=== PATIENT | female | born 1945 | race Caucasian/White ===

== ENCOUNTER 2016-10-05 00:58 | Observation (INO) ==
[2016-10-05] MEDS ORDERED: HYDROmorphone 2 MG/1 ML VIAL IV STA (01:31)
[2016-10-05] MEDS ORDERED: ONDANSETRON 4 MG/2 ML VIAL IV STA (01:31)
[2016-10-05] MEDS ORDERED: ONDANSETRON 4 MG/2 ML VIAL ONE (01:33)
[2016-10-05] MEDS ORDERED: HYDROmorphone 2 MG/1 ML VIAL ONE (01:34)
--- NOTE | 2016-10-05 01:55 | Emergency Department Note ---
I, Laurita Medrano, am scribing for, and in the presence of, Prerna Lu DO 01: 43. I, Prerna Lu DO, personally performed the services described in this documentation, ascribed by Laurita Medrano in my presence, and it is both accurate and complete . Arrival - Arrival Chief Complaint: Back Stated Complaint: BACK PAIN ED Nursing Triage Note: PT TO ROOM VIA [employer] STRETCHER. PT C/O BACK PAIN AND RIGHT LEG PAIN SINCE YESTERDAY. Mode of Arrival: Stretcher Limitations: No Limitations Source: Patient, Family Time Seen by Provider: 10/05/16 01:03 - History of Present Illness HPI Narrative: Pt is a 71 y/o female that was brought to the ED via EMS with c/o right back/ leg pain and chest pain that has been going on for a few days now. Pt also reports she has had SOB. Pt states the chest pain has come and gone for a week now. Pt reports she has had gastritis in the past. She states she has had pain in her leg since she had her hip replacement this last time, "the doctor broke my femur bone." Pt reports she has had 2 open heart surgeries. Pt's manager ems is Dr. Feng and she sees him again in 2 months. Pt's last open heart surgery was 2009. states pt is always in pain. Pt's PCP is Dr. Clark in [place]. No other complaints/pain in ED. Onset (ago): day(s) Consistency: constant Severity: mild Severity scale (1-10): 2 Quality: sharp Allergies/Adverse Reactions: Allergies Allergy/AdvReac Type Severity Reaction Status Date / Time Cefaclor [From Ceclor] Allergy Intermediate Redness of Verified 10/05/16 01:03 Skin Iodinated Contrast Media - Allergy Intermediate RASH Verified 10/05/16 01:03 IV Dye ketorolac [From Toradol] Allergy Intermediate RASH Verified 10/05/16 01:03 Penicillins Allergy Intermediate RASH Verified 10/05/16 01:03 Sulfa (Sulfonamide Allergy Intermediate RASH Verified 10/05/16 01:03 Antibiotics) Home Medications: Home Medications Medication Instructions Recorded Confirmed Type Aspirin [Ecotrin] 81 mg PO DAILY 05/16/15 09/08/15 History Clorazepate [Tranxene] 7.5 mg PO TID 05/16/15 09/08/15 History Gabapentin Cap/Tab [Neurontin 300 mg PO TID 05/16/15 09/08/15 History Cap/Tab] Levothyroxine Tab [Synthroid Tab] 100 mcg PO DAILY@0700 05/16/15 09/08/15 History Pravastatin [Pravachol] 80 mg PO BEDTIME 05/16/15 09/08/15 History Ramipril 2.5 mg PO BID 05/16/15 09/08/15 History [place] 3 Acid Ethyl Esters [Lovaza] 2 gm PO BID #120 capsule 05/18/15 09/08/15 Rx Metoprolol Tartrate Tab [Lopressor 25 mg PO DAILY 08/24/15 09/08/15 History Tab] Doxycycline Hyclate Cap 100 mg PO BID #14 capsule 09/05/15 09/08/15 Rx [Vibramycin Cap] Famotidine Tab [Pepcid Tab] 20 mg PO BID #30 tablet 09/05/15 09/08/15 Rx Docusate Sodium Cap [Colace Cap] 100 mg PO DAILY PRN 09/08/15 09/08/15 History Furosemide Tab [Lasix Tab] 40 mg PO BID DIURETIC 09/08/15 09/08/15 History Review of System - Review of System 12 point system: reviewed and no additional remarkable complaints except as stated - Review of System Constitutional: Absent: chills, fever Respiratory: Absent: cough Cardiovascular: Present: chest pain (on and off chest pain) Musculoskeletal: Present: back pain (pain in right side of back), leg pain ( right leg pain). Absent: arm pain, neck pain Skin: Absent: rash Neurological: Absent: headache Psychiatric: Absent: anxiety Medical,Surgical,& Family Hx - Medical History Cardio: History of: CAD, Hypertension, [place], Cardiovascular Problems Psychological: History of: Anxiety Disorders, Depression Neurology: History of: Peripheral Neuropathy No history of: Seizures Endocrine: History of: Dyslipidemia, Thyroid Disorder (HYPOTHYROIDISM) Rheumatology: History of;: Fibromyalgia Respiratory: History of: COPD, Pneumonia, Respiratory Problems Genitourinary: History of: Bladder Problem, Problems Gastrointestinal: History of: Diverticulitis/ Diverticulosis (ischemic colitis) , GERD, Gastrointestinal Bleed (ONSET TODAY), Hemorrhoids Musculoskeletal: History of: Back/Neck Problems, Degenerative Disk Disease, Osteoporosis, Musculoskeletal Problems (CHRONIC LEG PAIN) Hematology: History of: Anemia, Blood Transfusion Reaction Other: History of: Miscellaneous Medical Problems (chronic pain syndrome) No history of: Cancer - Surgical History Cardiac Surgeries: Sugical HX of: Cardiac Catheterization (stents three) HEENT Surgeries: Surgical HX of: Thyroid Surgery (HYPO), Tonsilectomy & Adenoidectomy Abdominal Surgeries: Surgical HX of: Abdominal Surgery, Appendectomy, Cholecystectomy, Colonoscopy, EGD Reproductive Surgeries: Surgical HX of;: Hysterectomy Orthopedic Surgeries: Surgical HX of;: Total Hip Replacement (bilateral hips) - Family History Family History: Reports;: Family Heart Disease (mom and father), Family Hypertension (mom and father), Family Stroke (grandfather) Denies;: Family Cancer, Family Diabetes - Social History Smoking Status: Former smoker Frequency of Alcohol Use: None Type of Drug Use: None Exam Vital Signs: Vital Signs Temperature 98.4 F 10/05/16 00:59 Pulse Rate 70 10/05/16 00:59 Respiratory Rate 18 10/05/16 00:59 Blood Pressure 143/83 10/05/16 00:59 O2 Sat by Pulse Oximetry 95 10/05/16 00:59 - General General appearance: alert, in no apparent distress - Head Head exam: Present: atraumatic, normocephalic - Eye Eye exam: Present: PERRL, EOMI - ENT ENT exam: Present: mucous membranes moist. Absent: mucous membranes dry - Neck Neck exam: Present: full ROM. Absent: tenderness - Chest Chest inspection: Present: symmetric chest wall rise, other (scar consistant with bypass surgery). Absent: tenderness - Respiratory Respiratory exam: Present: normal lung sounds bilaterally. Absent: respiratory distress - Cardiovascular Cardiovascular exam: Present: regular rate, normal rhythm, normal heart sounds - Abdominal Exam Abdominal exam: Present: soft. Absent: tenderness - Extremities Exam Extremities exam: Present: full ROM. Absent: tenderness - Back Exam Back exam: Present: full ROM, tenderness (tenderness of L4 and L5; noted right side sciatica) - Neurological Exam Neurological exam: Present: alert, oriented X3, CN II-XII intact. Absent: motor sensory deficit - Psychiatric Psychiatric exam: Present: normal affect, normal mood - Skin Skin exam: Present: warm, dry Course Course Narrative: spoke with Dr Villarreal who will admit pt for chest pain Results - Labs CBC & BMP: 01/16/17 01:48 10/05/16 01:48 Lab Results: I have reviewed the patients labs Labs: Laboratory Tests 10/05/16 10/05/16 01:48 01:48 MCV 103.1 H Anion Gap 15.9 H BUN 41 H Creatinine 1.80 H BUN/Creatinine Ratio 22.00 H Total Creatine Kinase 282 H Disposition Clinical Impression: Chest pain, Thoracic back pain, Sciatica Case discussed with: patient, patient's family Disposition: Still a Patient Condition: Stable Time of Disposition: 02:57
--- NOTE | 2016-10-05 02:02 | EKG Report ---
Stationary ECG Study [facility] ER Test Date: 10/05/2016 2:00:47 AM Pat Name: ОЛЕГ DILLON Department: Room: Gender: F Certified Mortician: : 1945 Requested by: Prerna Lu Order Number: [id number] Reading MD: NANO GOMEZ Intervals [place] Rate: 67 P: 61 ND: 187 QRS: 12 QRSD: 157 T: 180 QT: 494 QTc: 510 Interpretive Statements SINUS RHYTHM LEFT BUNDLE BRANCH BLOCK Electronically Signed On 10-05-16 08:50:31 COMMUTATOR TESTER by NANO GOMEZ [email or web address]
[2016-10-05 02:12] LABS: INR 1.1; PT Patient Result 11.5 SECS
[2016-10-05 02:22] LABS: Basophils # 0.1 10*3/uL (0.0-0.2); Basophils % 0.7 % (0.0-0.8); Eosinophils # 0.2 10*3/uL (0.0-0.87); Eosinophils % 2.7 % (0.00-10.9); Hemoglobin 13.2 GM/DL (12.0-16.0); Immature Granulocytes % 0.5 %; Immature Granulocytes Absolute 0.04 #; Lymphocytes # 3.5 10*3/uL (1.4-4.0); Lymphocytes % 43.1 % (21.3-54.2); Mean Corpuscular Hemoglobin 34 PG (27-34); Mean Corpuscular Volume 103.1 FL (87-102); Mean Platelet Volume 10.7 FL (9.6-12.0); Monocytes # 0.7 10*3/uL (0.11-0.8); Monocytes % 8.2 % (1.7-12.7); Neutrophils # 3.6 10*3/uL (1.4-7.4); Neutrophils % 44.8 % (38.7-73.9); Platelet Count 279 10*3/uL (130-400); Red Blood Count 3.88 10*6/uL (3.8-5.5); Red Cell Distribution Width 13.2 % (9.3-17.3)
[2016-10-05 02:27] LABS: Alanine Aminotransferase 27 U/L (13-56); Albumin 4.6 G/DL (3.4-5.0); Alkaline Phosphatase 79 U/L (45-117); Aspartate Amino Transferase 28 U/L (0-37); Blood Urea Nitrogen 41 MG/DL (7-18); Glucose 86 MG/DL (74-106); Osmolality,Calculated 287.4 MOS/KG (273-304); Potassium 3.9 MMOL/L (3.5-5.1); Sodium 140 MMOL/L (136-145); Total Protein 8.1 G/DL (6.4-8.3); Troponin I Only < 0.015 NG/ML (0.00-0.045)
[2016-10-05] MEDS ORDERED: ACETAMINOPHEN 325 MG TABLET PO PRN (02:57)
[2016-10-05] MEDS ORDERED: ONDANSETRON 4 MG/2 ML VIAL IV PRN (02:57)
[2016-10-05] MEDS ORDERED: SODIUM CHLORIDE 0.9% 1,000 ML IV SCH ×2 (03:00→16:00)
--- NOTE | 2016-10-05 03:26 | Hospitalist History & Physical ---
Assessment and Plan (1) Chest pain Status: Acute Current Visit: Yes (2) Sciatica Status: Acute Current Visit: Yes (3) Thoracic back pain Status: Acute Current Visit: Yes (4) History of coronary artery disease Status: Chronic Assessment and plan: Plan for this patient #1 admit the patient to a telemetry bed #2 serial troponins and EKGs #3 continue home meds as appropriate #4 consult cardiology #5 treat her pain Current Visit: No History of Present Illness Chief complaint: chest pain and back pain History of present illness: Ms. Garcia is a 71 year old female with past medical history significant for coronary artery disease chronic back pain congestive heart failure who was in normal state of health till the past 2 days. Patient's been developing on and off chest pain during this time. She says it's the left side of her chest radiates to her jaw and down her arm. She says she feels short of breath and diaphoretic with this pain. She says that there is an exertional component with this pain. She took a nitroglycerin and it didn't respond to this pain. Patient is a patient of Dr. Feng. She had a left heart cath in 2009 and went into congestive heart failure still thereafter she had a repeat CABG at that time. She'll first CABG was done in 1998 patient came back to the hospital for further evaluation. Patient also complaining about other chronic back pain also. Home Medications Medication Instructions Recorded Confirmed Type Aspirin [Ecotrin] 81 mg PO DAILY 05/16/15 09/08/15 History Clorazepate [Tranxene] 7.5 mg PO TID 05/16/15 09/08/15 History Gabapentin Cap/Tab [Neurontin 300 mg PO TID 05/16/15 09/08/15 History Cap/Tab] Levothyroxine Tab [Synthroid Tab] 100 mcg PO DAILY@0700 05/16/15 09/08/15 History Pravastatin [Pravachol] 80 mg PO BEDTIME 05/16/15 09/08/15 History Ramipril 2.5 mg PO BID 05/16/15 09/08/15 History [place] 3 Acid Ethyl Esters [Lovaza] 2 gm PO BID #120 capsule 05/18/15 09/08/15 Rx Metoprolol Tartrate Tab [Lopressor 25 mg PO DAILY 08/24/15 09/08/15 History Tab] Doxycycline Hyclate Cap 100 mg PO BID #14 capsule 09/05/15 09/08/15 Rx [Vibramycin Cap] Famotidine Tab [Pepcid Tab] 20 mg PO BID #30 tablet 09/05/15 09/08/15 Rx Docusate Sodium Cap [Colace Cap] 100 mg PO DAILY PRN 09/08/15 09/08/15 History Furosemide Tab [Lasix Tab] 40 mg PO BID DIURETIC 09/08/15 09/08/15 History Allergies Allergy/AdvReac Type Severity Reaction Status Date / Time Cefaclor [From Ceclor] Allergy Intermediate Redness of Verified 10/05/16 01:03 Skin Iodinated Contrast Media - Allergy Intermediate RASH Verified 10/05/16 01:03 IV Dye ketorolac [From Toradol] Allergy Intermediate RASH Verified 10/05/16 01:03 Penicillins Allergy Intermediate RASH Verified 10/05/16 01:03 Sulfa (Sulfonamide Allergy Intermediate RASH Verified 10/05/16 01:03 Antibiotics) Medical,Surgical,& Family Hx - Medical History Cardio: History of: CAD, Hypertension, [place], Cardiovascular Problems Psychological: History of: Anxiety Disorders, Depression Neurology: History of: Peripheral Neuropathy No history of: Seizures Endocrine: History of: Dyslipidemia, Thyroid Disorder (HYPOTHYROIDISM) Rheumatology: History of;: Fibromyalgia Respiratory: History of: COPD, Pneumonia, Respiratory Problems Genitourinary: History of: Bladder Problem, Problems Gastrointestinal: History of: Diverticulitis/ Diverticulosis (ischemic colitis) , GERD, Gastrointestinal Bleed (ONSET TODAY), Hemorrhoids Musculoskeletal: History of: Back/Neck Problems, Degenerative Disk Disease, Osteoporosis, Musculoskeletal Problems (CHRONIC LEG PAIN) Hematology: History of: Anemia, Blood Transfusion Reaction Other: History of: Miscellaneous Medical Problems (chronic pain syndrome) No history of: Cancer - Surgical History Cardiac Surgeries: Sugical HX of: Cardiac Catheterization (stents three) HEENT Surgeries: Surgical HX of: Thyroid Surgery (HYPO), Tonsilectomy & Adenoidectomy Abdominal Surgeries: Surgical HX of: Abdominal Surgery, Appendectomy, Cholecystectomy, Colonoscopy, EGD Reproductive Surgeries: Surgical HX of;: Hysterectomy Orthopedic Surgeries: Surgical HX of;: Total Hip Replacement (bilateral hips) - Family History Family History: Reports;: Family Heart Disease (mom and father), Family Hypertension (mom and father), Family Stroke (grandfather) Denies;: Family Cancer, Family Diabetes - Social History Smoking Status: Former smoker Frequency of Alcohol Use: None Type of Drug Use: None 12 point system: reviewed and no additional remarkable complaints except as stated Exam - Constitutional Vitals: Period Temp Pulse Resp BP Sys/[place] Pulse Ox Last 24 Hr 98.4 F 70 18 143/83 95 - General General appearance: alert, in no apparent distress - Head Head exam: Present: atraumatic, normocephalic - Eye Eye exam: Present: PERRL, EOMI - ENT ENT exam: Present: mucous membranes moist. Absent: mucous membranes dry - Neck Neck exam: Present: full ROM. Absent: tenderness - Chest Chest inspection: Present: symmetric chest wall rise, other (scar consistant with bypass surgery). Absent: tenderness - Respiratory Respiratory exam: Present: normal lung sounds bilaterally. Absent: respiratory distress - Cardiovascular Cardiovascular exam: Present: regular rate, normal rhythm, normal heart sounds - Abdominal Exam Abdominal exam: Present: soft. Absent: tenderness - Extremities Exam Extremities exam: Present: full ROM. Absent: tenderness - Back Exam Back exam: Present: full ROM, tenderness (tenderness of L4 and L5; noted right side sciatica) - Neurological Exam Neurological exam: Present: alert, oriented X3, CN II-XII intact. Absent: motor sensory deficit - Psychiatric Psychiatric exam: Present: normal affect, normal mood - Skin Skin exam: Present: warm, dry Results - Labs CBC & BMP: 10/05/16 01:48 10/05/16 01:48 Labs: Patient's EKG showed a left bundle branch block
[2016-10-05] MEDS ORDERED: INFLUENZA VIRUS VACCINE 0.5 ML SYRINGE IM ONE (04:57)
[2016-10-05] MEDS: ENOXAPARIN 30 MG/0.3 ML SYRINGE SUBCUT SCH (05:25)
[2016-10-05] MEDS: NITROGLYCERIN 2% OINT 1 INCH/GM PACK TOP SCH ×4 (05:26→23:27)
[2016-10-05] MEDS: LEVOTHYROXINE 100 MCG TABLET PO SCH (06:21)
[2016-10-05 06:23] LABS: Risk Ratio 5.47; VLDL CHOLESTEROL 78.2 MG/DL
--- NOTE | 2016-10-05 06:38 | XRay Report ---
XR chest 1V portable Indication: Chest pain. Chest one view: Comparison 09/08/15. Postoperative changes median sternotomy and calcified atheromatous disease are again shown. Although there is mild prominence of the interstitium of the lungs, overall severity has improved since previous exam. No focal infiltrate. Heart size is now normal. Impression: Mild nonspecific interstitial prominence of the lungs, suspect senile in nature. No acute cardio pulmonary disease. PROCEDURE INTERPRETED AT [facility] DEPARTMENT OF RADIOLOGY Final Report Signed by: Freddy Parada M.D.
--- NOTE | 2016-10-05 06:48 | EKG Report ---
Stationary ECG Study [facility] Test Date: 10/05/2016 6:46:43 AM Pat Name: ОЛЕГ DILLON Department: Room: 287 Gender: F Volunteer Assistant: YENNI : 1945 Requested by: Freddy Mak Order Number: [id number] Reading MD: NANO GOMEZ Intervals [place] Rate: 69 P: 39 [place]: 184 QRS: 97 QRSD: 162 T: 266 QT: 479 QTc: 498 Interpretive Statements SINUS RHYTHM BORDERLINE RIGHT AXIS DEVIATION LEFT BUNDLE BRANCH BLOCK Electronically Signed On 10-05-16 08:51:31 CHIEF MEDICAL OFFICER by NANO GOMEZ [id number]
[2016-10-05] MEDS ORDERED: FUROSEMIDE 40 MG TABLET PO SCH (08:00)
[2016-10-05 08:07] LABS: Calcium 8.9 MG/DL (8.5-10.1); Osmolality,Calculated 285.8 MOS/KG (273-304); Potassium 4.4 MMOL/L (3.5-5.1)
[2016-10-05] MEDS: HYDROmorphone 2 MG/1 ML VIAL IV PRN ×4 (10:01→22:36)
[2016-10-05] MEDS: ESCITALOPRAM 10 MG TABLET PO SCH ×2 (10:03→12:43)
[2016-10-05] MEDS: ASPIRIN EC 325 MG TABLET PO SCH ×2 (10:03→12:42)
[2016-10-05] MEDS: MOMETASONE 50 MCG NASAL SPRAY 17 GM BOTTLE BOTH NARES SCH (10:03)
[2016-10-05] MEDS: PANTOPRAZOLE 40 MG TABLET PO SCH ×2 (10:03→12:43)
[2016-10-05] MEDS: RAMIPRIL 2.5 MG CAPSULE PO SCH ×2 (10:03→12:42)
[2016-10-05] MEDS: MELOXICAM 7.5 MG TABLET PO SCH ×2 (10:03→12:50)
[2016-10-05] MEDS: DOCUSATE SODIUM 100 MG CAPSULE PO SCH ×3 (10:03→20:51)
[2016-10-05] MEDS: CLORAZEPATE 7.5 MG TABLET PO SCH ×3 (10:04→20:50)
--- NOTE | 2016-10-05 10:30 | EKG Report ---
Stationary ECG Study [facility] Test Date: 10/05/2016 10:29:28 AM Pat Name: ОЛЕГ DILLON Department: Room: 287 Gender: F Treasury Specialist: VIBHA : 1945 Requested by: Freddy Mak Order Number: [id number] Reading MD: NANO GOMEZ Intervals [place] Rate: 72 P: 46 [place]: 170 QRS: 101 QRSD: 158 T: -89 QT: 458 QTc: 482 Interpretive Statements SINUS RHYTHM MARKED RIGHT AXIS DEVIATION INTRAVENTRICULAR CONDUCTION DELAY Electronically Signed On 10-05-16 11:59:56 ENERGY INFRASTRUCTURE ENGINEER by NANO GOMEZ [id number]
--- NOTE | 2016-10-05 15:30 | Cardiology Consult Note ---
I, Natalia Rinaldi, CARMELLA, am scribing for, and in the presence of, Titi Henson MD 15:25. Assessment and Plan - Time spent with patient Time spent with patient: Greater than 30 minutes (1) Chest pain Status: Acute Assessment and plan: Some features typical for angina, other symptoms reported atypical for angina. She reports a heaviness in her left chest which radiates to her midsternal chest. She also has tenderness to palpation in this same region. She describes having jaw pain which radiates down her left neck and left arm that she says is similar to previous pain she has had when she has been hospitalized for her heart and has required stenting or CABG. Troponins are negative thus far. EKG shows sinus rhythm with chronic LBBB and inverted T waves. To me, with her having acute renal failure, the risk of the giving her contrast is greater than the benefit in this situation. Her troponins are negative. She has chest pain that is reproducible. She does have known CAD. Plan/ recommendation : Not take to the Apiculturist at this point. The risk of greater than benefit, given her acute renal failure. She had a heart cath done in which showed all grafts were open there is not an explanation for her pain which is similar to now. Her BNP is 92, so I will give her a low volume infusion of saline see if it helps her renal function. BMP every morning 3. Elevate the head of her bed. GE reflux precautions. She is on a proton pump inhibitor. Anxiety is much of a problem. And trazodone for over milligrams nightly. Will give a trial of gabapentin 100 mg p.o. 3 times daily, to treat for muscle skeletal pain.. Will consult pain medicine. She states she cannot take tramadol. Do not use NSAIDs because of her acute renal failure. Her left bundle-branch block is chronic. Serial cardiac isoenzymes. Serial EKGs. I will follow along with. Thank you for allowing me to participate in this patient's care Current Visit: Yes (2) Sciatica Status: Acute Current Visit: Yes (3) Thoracic back pain Status: Acute Current Visit: Yes (4) Dyslipidemia Status: Chronic Assessment and plan: Triglycerides 391, cholesterol 186, LDL 100, HDL 34. Currently on Trilipix 45mg PO daily. Current Visit: Yes (5) Hypertension Status: Chronic Assessment and plan: Patient's blood pressure has been elevated since admission. She has been in a good deal of back and sciatic pain. Once her pain is better controlled, she may require adjustment of blood pressure medications. Current Visit: Yes (6) History of coronary artery bypass graft x 3 Problem details: Patient has history of coronary artery bypass grafting in 1998 with RICKS to LAD, saphenous vein graft to first diagonal, saphenous vein graft to RCA. Patient had repeat coronary artery bypass grafting in 2009 with saphenous vein graft to diagonal branch. Status: Chronic Current Visit: Yes (7) History of congestive heart failure Status: Chronic Assessment and plan: Patient is not currently in heart failure. BNP on admission was 92. Last echo on record from 05/16/15 shows EF of 50%, mild MR, mild AI. Current Visit: Yes (8) History of coronary artery disease Problem details: Patient has history of coronary artery bypass grafting in 1998 with RICKS to LAD, saphenous vein graft to first diagonal, saphenous vein graft to RCA. Patient had repeat coronary artery bypass grafting in 2009 with saphenous vein graft to diagonal branch. Status: Chronic Current Visit: No (9) Chest wall pain Status: Acute Current Visit: Yes (10) Acute renal failure Status: Acute Current Visit: Yes (11) Left bundle branch block Status: Acute Current Visit: Yes (12) History of colitis Status: Acute Current Visit: Yes (13) Dyspnea on exertion Status: Acute Current Visit: Yes (14) Overweight Status: Acute Current Visit: Yes (15) Chest pain Problem details: The patient has always been difficult to evaluate. She's had pain at rest. The only option is really cardiac catheterization. Status: Acute Current Visit: No (16) Hyperlipidemia LDL goal <100 Status: Acute Current Visit: No (17) Reflux esophagitis Status: Acute Current Visit: No (18) Chronic pain associated with significant psychosocial dysfunction Problem details: Complaining of bilateral hip pain. She thinks her right hip may be dislocated again. Status: Acute Current Visit: No (19) Osteoarthritis (arthritis due to wear and tear of joints) Status: Acute Current Visit: No Qualifiers: Osteoarthritis location: multiple joints Osteoarthritis type: primary Qualified Code(s): M15.0 - Primary generalized (osteo)arthritis (20) COPD (chronic obstructive pulmonary disease) Status: Chronic Current Visit: No (21) Colitis Status: Acute Current Visit: No History of Present Illness - Data of Consult Patient: new to practice (patient of Dr. Feng) Consult date: 10/05/16 Requesting Physician: Freddy Mak - Consult Narrative Reason for consult: chest pain History of present illness: Ms. Garcia is a 71 year old female who is routinely followed by Dr. Feng. She has a history of coronary artery disease, hypothyroid, hypertension, dyslipidemia, congestive heart failure. She has undergone previous coronary artery bypass grafting in 1998 with a RICKS to LAD graft, saphenous vein graft to the first diagonal, and saphenous vein graft to the RCA. She underwent repeat CABG in 2009 with saphenous vein graft to the diagonal branch. She has risk factors significant for sedentary lifestyle, overweight, personal history, hypertension, dyslipidemia. She presented to the hospital with complaints of back pain and sciatica ongoing for approximately one week, worsening over the last 3 days. She tells me she has been unable to do basic daily activities due to back spasms and associated shortness of breath. She reports having left-sided chest pain that radiates to her midsternal region. She reports this feels like a heaviness. She also reports bilateral jaw pain and left neck pain that radiates down her left arm which she says feels similar to previous hospitalizations where she has had to undergo left heart catheterizations. She is tender to palpation of her left chest wall and midsternal chest. She is unable to tell me if the pain upon palpation is the same pain that she has been experiencing. She also complains of dizziness for the last couple of weeks that has been improving and lightheadedness when she is bending over. She has had a sinus infection that she is recovering from. I do believe she is depressed. She discussed at length the heartache of losing her son in law in May and her developing dementia or Alzheimer's. She reports she has been very stressed and has been in a lot of grief lately. Ms. Garcia is in sinus rhythm and has a chronic left bundle branch block noted on her EKG. She does have some inverted T waves on her current EKG. Thus far, her troponins have been negative. Creatinine is 2.20. Her triglycerides are 391, cholesterol 186, LDL 100, and HDL 34. CC: Taylor Cochran MD - Home Medications and Allergies Home Medications: Home Medications Medication Instructions Recorded Confirmed Type Aspirin [Ecotrin] 81 mg PO DAILY 05/16/15 10/05/16 History Clorazepate [Tranxene] 7.5 mg PO TID 05/16/15 10/05/16 History Levothyroxine Tab [Synthroid Tab] 100 mcg PO DAILY@0700 05/16/15 10/05/16 History Ramipril 2.5 mg PO BID 05/16/15 10/05/16 History Furosemide Tab [Lasix Tab] 40 mg PO BID DIURETIC 09/08/15 10/05/16 History Escitalopram [Lexapro] 20 mg PO DAILY 10/05/16 10/05/16 History Fenofibric Acid (Choline) 45 mg PO DAILY 10/05/16 10/05/16 History [Trilipix] Meloxicam [Mobic] 7.5 mg PO DAILY 10/05/16 10/05/16 History Mometasone 50 Mcg Nasal [place] 2 sprays ONE NARE DAILY 10/05/16 10/05/16 History [Nasonex Nasal [place]] Montelukast Tab [Singulair Tab] 10 mg PO BEDTIME 10/05/16 10/05/16 History Temazepam [Restoril] 15 mg PO BEDTIME 10/05/16 10/05/16 History Allergies/Adverse Reactions: Allergies Allergy/AdvReac Type Severity Reaction Status Date / Time Cefaclor [From Ceclor] Allergy Intermediate Redness of Verified 10/05/16 01:03 Skin Iodinated Contrast Media - Allergy Intermediate RASH Verified 10/05/16 01:03 IV Dye ketorolac [From Toradol] Allergy Intermediate RASH Verified 10/05/16 01:03 Penicillins Allergy Intermediate RASH Verified 10/05/16 01:03 Sulfa (Sulfonamide Allergy Intermediate RASH Verified 10/05/16 01:03 Antibiotics) 12 point system: reviewed and no additional remarkable complaints except as stated (A 12 point review of systems is negative except for as mentioned in HPI. ) - Constitutional Constitutional: Present: excessive sweating, fatigue. Absent: anorexia, chills , fever(s), frequent falls, headache(s), increased appetite, lethargy, malaise, weakness, weight gain, weight loss - EENT Eyes: Absent: blurry vision, diplopia, loss of vision Ears: Absent: decreased hearing, ear discharge, ear pain Nose, mouth and throat: Present: nasal congestion, neck pain. Absent: dysphagia , epistaxis, hoarseness, lip swelling, tongue swelling, vertigo - Cardiovascular Cardiovascular: Present: chest pain at rest, chest pain with activity, dyspnea, dyspnea on exertion, edema, radiating jaw, neck or arm pain, lightheadedness. Absent: claudication, orthopnea, palpitations, PND - Respiratory Respiratory: Present: dyspnea, dyspnea on exertion. Absent: cough, hemoptysis, wheezing, snoring, pain on inspiration - Gastrointestinal Gastrointestinal: Present: nausea. Absent: abdominal pain, bloating, change in bowel habits, constipation, cramping, dysphagia, heartburn, hematemesis, hematochezia, vomiting - Genitourinary Genitourinary: Absent: difficulty urinating, dysuria, flank pain, hematuria, urinary frequency, urinary hesitancy, urinary incontinence - Musculoskeletal Musculoskeletal: Present: back pain, limited range of motion. Absent: arthralgias, joint swelling, muscle cramps, muscle weakness, myalgias - Neurological Neurological: Present: dizziness. Absent: abnormal gait, abnormal speech, behavioral changes, confusion, convulsions, disequilibrium, focal weakness, frequent falls, headache(s), memory loss, numbness, paresthesias, radicular pain , syncope, tremor(s) - Psychiatric Psychiatric: Present: depression. Absent: anxiety, confusion, memory loss, panic attacks - Endocrine Endocrine: Present: fatigue. Absent: cold intolerance, polydipsia, polyphagia - Hematologic/Lymphatic Hematologic/Lymphatic: Absent: easy bleeding, easy bruising, lymphadenopathy Medical,Surgical,& Family Hx - Medical History Cardio: History of: Aneurysm (pt states has abdominal aneurysm), CHF, CAD, Hypertension, [place], Cardiovascular Problems Psychological: History of: Anxiety Disorders, Depression Neurology: History of: Peripheral Neuropathy No history of: Seizures Endocrine: History of: Dyslipidemia, Thyroid Disorder (HYPOTHYROIDISM) Rheumatology: History of;: Fibromyalgia Respiratory: History of: COPD, Pneumonia, Respiratory Problems Genitourinary: History of: Bladder Problem, Problems Gastrointestinal: History of: Diverticulitis/ Diverticulosis (ischemic colitis) , GERD, Gastrointestinal Bleed ([place]), Hemorrhoids Musculoskeletal: History of: Back/Neck Problems, Degenerative Disk Disease, Osteoporosis, Musculoskeletal Problems (CHRONIC LEG PAIN) Hematology: History of: Anemia, Blood Transfusion Reaction Other: History of: Miscellaneous Medical Problems (chronic pain syndrome) No history of: Cancer - Surgical History Cardiac Surgeries: Sugical HX of: Cardiac Catheterization (stents three), Cardiac Surgery (pt states has had two open heart surgeries) HEENT Surgeries: Surgical HX of: Thyroid Surgery (HYPO), Tonsilectomy & Adenoidectomy Abdominal Surgeries: Surgical HX of: Abdominal Surgery, Appendectomy, Cholecystectomy, Colonoscopy, EGD Reproductive Surgeries: Surgical HX of;: Hysterectomy Orthopedic Surgeries: Surgical HX of;: Total Hip Replacement (bilateral hips) - Family History Family History: Reports;: Family Heart Disease (mom and father), Family Hypertension (mom and father), Family Stroke (grandfather) Denies;: Family Cancer, Family Diabetes - Social History Smoking Status: Former smoker Frequency of Alcohol Use: None Type of Drug Use: None Functional capacity: independent ambulation Physical Examination Vital Signs Temp Pulse Resp BP Pulse Ox 98.4 F 70 18 143/83 95 10/05/16 00:59 10/05/16 00:59 10/05/16 00:59 10/05/16 00:59 10/05/16 00:59 General: Present: Appears Well, No Apparent Distress HEENT: Present: Normocephaly, Mucus Membranes Moist Neck: Present: Supple Neck, Midline Trachea, No Masses, No Bruit, No Lymphadenopathy, No Thyromegaly Cardiac: Present: Reg Rate and Rhythm, No Murmur Lungs: Present: Normal Exam, Clear Ascult./Percussion, Normal Breath Sounds, No Wheeze, Rales, Rhonchi Neuro: Present: Grossly Intact. Absent: Resting Tremor, Essential Tremor Abdomen: Present: Soft, Active Bowel Sounds, No Masses, No Pulsations/Bruits, Non-Tender Skin: Present: Clear. Absent: Rash Musculoskeletal: Present: Normal Range of Motion (limited ROM due to pain when moving). Absent: No Pain (lower back pain, upper back pain) Extremities: Present: No Clubbing, No Cyanosis, No Edema, Normal Upper Extr. Pulses, Normal Lower Extr. Pulses, No Phlebitic Signs Other: She has left anterior chest wall pain, reproducible, which is similar to what she had on admission. Result/EKG - Labs CBC & BMP: 10/05/16 01:48 10/05/16 07:25 Lab Results: I have reviewed the past 24 hour labs Labs: Laboratory Results - last 24 hr 10/05/16 10/05/16 10/05/16 05:20 05:20 07:25 Sodium 137 Potassium 4.4 Chloride 99 Carbon Dioxide 26 Anion Gap 16.4 H BUN 43 H Creatinine 2.20 H GFR Calculation 23 BUN/Creatinine Ratio 19.00 Glucose 132 H Calculated Osmolality 285.8 Calcium 8.9 Troponin I < 0.015 Triglycerides 391 H Cholesterol 186 LDL Cholesterol 100.0 VLDL Cholesterol 78.2 HDL Cholesterol 34 L Heart Disease Risk Ratio 5.47 10/05/16 07:25 Sodium Potassium Chloride Carbon Dioxide Anion Gap BUN Creatinine GFR Calculation BUN/Creatinine Ratio Glucose Calculated Osmolality Calcium Troponin I < 0.015 Triglycerides Cholesterol LDL Cholesterol VLDL Cholesterol HDL Cholesterol Heart Disease Risk Ratio - EKG EKG results: interpreted by me, sinus rhythm (with chronic left bundle branch block) Quality Measures - VTE Deep Vein Thrombosis/Pulmonary Embolism Present on Admission: No I, Titi Henson MD, personally performed the services described in this documentation, ascribed by Natalia Rinaldi RN in my presence, and it is both accurate and complete 525 .
--- NOTE | 2016-10-05 16:12 | Hospitalist Progress Note ---
Assessment and Plan - Time spent with patient Time spent with patient: Greater than 30 minutes (1) Chest pain Status: Acute Assessment and plan: Serial troponins negative. Defer to cardiology for further workup. Current Visit: Yes (2) History of congestive heart failure Status: Chronic Assessment and plan: Stable, euvolemic. Current Visit: Yes (3) History of coronary artery bypass graft x 3 Problem details: Patient has history of coronary artery bypass grafting in 1998 with RICKS to LAD, saphenous vein graft to first diagonal, saphenous vein graft to RCA. Patient had repeat coronary artery bypass grafting in 2009 with saphenous vein graft to diagonal branch. Status: Chronic Assessment and plan: History of CAD with CABG. Current Visit: Yes (4) Hypothyroidism Status: Acute Assessment and plan: Continue synthroid. Current Visit: Yes (5) Hypertension Status: Chronic Assessment and plan: Continue medications, well controlled. Current Visit: Yes Hospitalist: Subjective Interval history: Patient has no complaints of chest pain currentl, though she has complaints of back pain and sciatica, no overnight events. Exam - Constitutional Vitals: Period Temp Pulse Resp BP Sys/[place] Pulse Ox Last 24 Hr 96.8 F-97.6 F 70-77 16-20 120-165/60-94 89-96 General appearance: no acute distress - Head Head exam: Present: normocephalic, atraumatic - Eye Eye exam: Present: EOMI Pupils: Present: MAURA - ENT ENT exam: Present: normal exam - Neck Neck exam: Present: normal inspection - Respiratory Respiratory exam: Present: clear to auscultation bilaterally. Absent: rhonchi, wheezes - Cardiovascular Cardiovascular exam: Present: regular rate and rhythm. Absent: gallop, rubs, systolic murmur - GI/Abdominal GI/Abdominal exam: Present: normal bowel sounds, soft. Absent: distended, firm , guarding, tenderness, rebound - Extremities Exam Extremities exam: Present: normal inspection. Absent: calf tenderness, edema Results - Labs CBC & BMP: 10/05/16 01:48 10/05/16 07:25 Lab Results: I have reviewed the past 24 hour labs Quality Measures - VTE Deep Vein Thrombosis/Pulmonary Embolism Present on Admission: No
[2016-10-05 16:22] LABS: Troponin I Only < 0.015 NG/ML (0.00-0.045)
[2016-10-05] MEDS: FENOFIBRATE 48 MG TABLET PO SCH (16:38)
[2016-10-05] MEDS: GABAPENTIN 100 MG CAPSULE PO SCH ×2 (16:38→20:51)
--- NOTE | 2016-10-05 16:49 | ECHO Report ---
Teresa Garcia Exam Date: 10/05/2016 11:05 Referring Physician: Technologist: Hilary Martins RDCS Age: 71 Ht (in): Wt (lb): Gender: F Exam Location: [facility] Echo Indications: Chest pain, unspecified, Sciatica, Thoracic back pain, Essential (primary) hypertension, CAD with previous CABG, COPD BP: / HR: Rhythm: Sinus Technical Quality: Good IMPRESSIONS Mild left ventricular hypertrophy. Left ventricular ejection fraction is estimated at 60 %. Findings suggestive of left ventricular diastolic dysfunction. Mildly increased right atrial size. Moderately increased left atrial size. Mild mitral annular and leaflet calcification with mild mitral regurgitation. Aortic valve sclerosis without stenosis. Trace to mild aortic valve regurgitation. Trace to mild tricuspid valve regurgitation. Tricuspid regurgitation velocities suggest a PAP of 80 mmHg. There is no pulmonic regurgitation. MEASUREMENTS (Male / Female) Normal Values 2D ECHO LV Diastolic Diameter PLAX 5.3 cm 4.2 - 5.9 / 3.9 - 5.3 cm LV Systolic Diameter PLAX 3.4 cm LV Fractional Shortening PLAX 35.9 % IVS Diastolic Thickness 1.2 cm 0.6 - 1.0 / 0.6 - 0.9 cm LVPW Diastolic Thickness 1.2 cm 0.6 - 1.0 / 0.6 - 0.9 cm RV Internal Dim ED PLAX 3.0 cm Aortic Root Diameter 3.1 cm LA Systolic Diameter LX 5.0 cm 3.0 - 4.0 / 2.7 - 3.8 cm DOPPLER TR Peak Velocity 418.0 cm/s TR Peak Gradient 69.9 mmHg FINDINGS Left Ventricle Normal left ventricular cavity size. Mild left ventricular hypertrophy. Left ventricular ejection fraction is estimated at 60 %.Findings suggestive of left ventricular diastolic dysfunction. Right Ventricle The right ventricle is normal in size and function. Right Atrium mildly increased right atrial size. Left Atrium Moderately increased left atrial size. Mitral Valve Mild mitral annular and leaflet calcification with mild mitral regurgitation. Aortic Valve Aortic valve sclerosis without stenosis. Trace to mild aortic valve regurgitation. Tricuspid Valve Morphologically normal tricuspid valve. Trace to mild tricuspid valve regurgitation. Tricuspid regurgitation velocities suggest a PAP of 80 mmHg. Pulmonic Valve Morphologically normal pulmonic valve without significant stenosis. There is no pulmonic regurgitation. Pericardium Normal pericardium without effusion. Aorta Normal ascending aorta dimension. Titi Henson MD (Electronically Signed) Final Date: 05 October 2016 16:48
--- NOTE | 2016-10-05 17:27 | Pain Management Consult Note ---
Assessment and Plan (1) Lumbar spine pain Problem details: Long-standing low back pain Status: Acute Assessment and plan: 10/05/2016. The patient has long-standing low back pain for over 10 years. She is on [place] chronically for this. The pain is much worse recently, and we' ll get x-rays rule out fracture. Her anxiety is playing a role in the pain process. y Current Visit: Yes (2) Hip pain, chronic Problem details: Bilateral hip pain right worse than left. She is status post bilateral hip replacement Status: Acute Assessment and plan: The patient has long-standing bilateral hip pain. She had bilateral hip replacement years ago. She has had persistent pain over the years. The pain is worse with standing. Current Visit: Yes Qualifiers: Laterality: right Qualified Code(s): M25.551 - Pain in right hip; G89.29 - Other chronic pain (3) Lumbar radiculopathy, right Problem details: Long-standing motor sensory deficit right lower extremity pain Status: Acute Assessment and plan: The patient has a lumbar radiculopathy involving the right lower extremity. She has motor sensory deficit in the right lower extremity consistent with a low lumbar radiculopathy. This is long-standing and not acute but the severity of it has increased over the past week. Goal is to treat her conservatively and work on her mechanical low back pain. If the radicular pain worsens we may need a MRI that point. Her anxiety level is playing a role in the pain process. Current Visit: Yes (4) Chronic anxiety Problem details: Long-standing anxiety Status: Acute Assessment and plan: The patient reports being anxious and somewhat down. She lost her son-in-law who is very close to her late last year. Her has progressive dementia. She is losing the ability to remain active and this is adding to her anxiety and depressive symptomatology. Her depressive symptomatology my opinion is playing assessment a role in her pain process. I do think that some of her anxieties driven by progressive loss of independence. Current Visit: Yes History of Present Illness Chief complaint: low back pain that radiates down both legs History of present illness: Ms. Garcia is a 71 year old female with long-standing low back hip and leg pain. Her pain is been much worse over the past week. It intensified after leaning over and twisting. She describes the pain as "intolerable". She is on [place] long-term from her primary care doctor. The pain as a constant throbbing aching discomfort worse with any movement. Home Medications Medication Instructions Recorded Confirmed Type Aspirin [Ecotrin] 81 mg PO DAILY 05/16/15 10/05/16 History Clorazepate [Tranxene] 7.5 mg PO TID 05/16/15 10/05/16 History Levothyroxine Tab [Synthroid Tab] 100 mcg PO DAILY@0700 05/16/15 10/05/16 History Ramipril 2.5 mg PO BID 05/16/15 10/05/16 History Furosemide Tab [Lasix Tab] 40 mg PO BID DIURETIC 09/08/15 10/05/16 History Escitalopram [Lexapro] 20 mg PO DAILY 10/05/16 10/05/16 History Fenofibric Acid (Choline) 45 mg PO DAILY 10/05/16 10/05/16 History [Trilipix] Meloxicam [Mobic] 7.5 mg PO DAILY 10/05/16 10/05/16 History Mometasone 50 Mcg Nasal [place] 2 sprays ONE NARE DAILY 10/05/16 10/05/16 History [Nasonex Nasal [place]] Montelukast Tab [Singulair Tab] 10 mg PO BEDTIME 10/05/16 10/05/16 History Temazepam [Restoril] 15 mg PO BEDTIME 10/05/16 10/05/16 History Allergies Allergy/AdvReac Type Severity Reaction Status Date / Time Cefaclor [From Ceclor] Allergy Intermediate Redness of Verified 10/05/16 01:03 Skin Iodinated Contrast Media - Allergy Intermediate RASH Verified 10/05/16 01:03 IV Dye ketorolac [From Toradol] Allergy Intermediate RASH Verified 10/05/16 01:03 Penicillins Allergy Intermediate RASH Verified 10/05/16 01:03 Sulfa (Sulfonamide Allergy Intermediate RASH Verified 10/05/16 01:03 Antibiotics) Medical,Surgical,& Family Hx - Medical History Cardio: History of: Aneurysm (pt states has abdominal aneurysm), CHF, CAD, Hypertension, MS, Cardiovascular Problems Psychological: History of: Anxiety Disorders, Depression Neurology: History of: Peripheral Neuropathy No history of: Seizures Endocrine: History of: Dyslipidemia, Thyroid Disorder (HYPOTHYROIDISM) Rheumatology: History of;: Fibromyalgia Respiratory: History of: COPD, Pneumonia, Respiratory Problems Genitourinary: History of: Bladder Problem, Problems Gastrointestinal: History of: Diverticulitis/ Diverticulosis (ischemic colitis) , GERD, Gastrointestinal Bleed ([place]), Hemorrhoids Musculoskeletal: History of: Back/Neck Problems, Degenerative Disk Disease, Osteoporosis, Musculoskeletal Problems (CHRONIC LEG PAIN) Hematology: History of: Anemia, Blood Transfusion Reaction Other: History of: Miscellaneous Medical Problems (chronic pain syndrome) No history of: Cancer - Surgical History Cardiac Surgeries: Sugical HX of: Cardiac Catheterization (stents three), Cardiac Surgery (pt states has had two open heart surgeries) HEENT Surgeries: Surgical HX of: Thyroid Surgery (HYPO), Tonsilectomy & Adenoidectomy Abdominal Surgeries: Surgical HX of: Abdominal Surgery, Appendectomy, Cholecystectomy, Colonoscopy, EGD Reproductive Surgeries: Surgical HX of;: Hysterectomy Orthopedic Surgeries: Surgical HX of;: Total Hip Replacement (bilateral hips) - Family History Family History: Reports;: Family Heart Disease (mom and father), Family Hypertension (mom and father), Family Stroke (grandfather) Denies;: Family Cancer, Family Diabetes - Social History Smoking Status: Former smoker Frequency of Alcohol Use: None Type of Drug Use: None Quality Measures - VTE Deep Vein Thrombosis/Pulmonary Embolism Present on Admission: No - Constitutional Constitutional: Present: fatigue, lethargy, malaise, weakness (right lower extremity) - Cardiovascular Cardiovascular: Present: dyspnea on exertion - Gastrointestinal Gastrointestinal: Present: constipation - Musculoskeletal Musculoskeletal: Present: arthralgias, back pain, joint swelling, muscle weakness (right lower extremity) - Neurological Neurological: Present: focal weakness (right lower extremity), numbness, paresthesias - Endocrine Endocrine: Present: heat intolerance Exam - Constitutional Vitals: Period Temp Pulse Resp BP Sys/Jaramillo Pulse Ox Last 24 Hr 96.8 F-97.6 F 70-77 16-20 120-165/60-94 89-96 General appearance: over weight - Head Head exam: Present: normocephalic - Eye Eye exam: Present: EOMI - ENT Mouth exam: Present: normal voice - Neck Neck exam: Present: normal inspection - Respiratory Respiratory exam: Present: clear to auscultation bilaterally - Cardiovascular Cardiovascular exam: Present: RRR - GI/Abdominal GI/Abdominal exam: Present: normal bowel sounds - Back Exam Back exam: Present: vertebral tenderness - Neurological Exam Neurological exam: Present: alert, oriented X3, motor sensory deficit (right lower extremity L5-S1) - Skin Skin exam: Present: normal color, warm Results - Labs CBC & BMP: 10/05/16 01:48 10/05/16 07:25
--- NOTE | 2016-10-05 18:30 | XRay Report ---
Lumbar spine, 3 views History low back pain Alignment lateral plane is normal through L5-S1 There are mild degenerative changes throughout the lumbar spine without focal vertebral body height loss seen Lumbar facet hypertrophy is present There is a abdominal aortic aneurysm measuring approximately 3.7 a.m. Vascular calcifications present Clips present in the right upper abdomen Impression: 1. Abdominal aortic aneurysm 2. Degenerative changes in the lumbar spine PROCEDURE INTERPRETED AT [facility] DEPARTMENT OF RADIOLOGY Final Report Signed by: Dr. Anuja Hoffmann
--- NOTE | 2016-10-05 18:37 | XRay Report ---
AP pelvis. Single view. Indication: Low back pain, pelvic pain, and hip pain. Comparison: May 16, 2015. There have been bilateral total hip or placement. The hardware appears to be in satisfactory position, and there is no evidence of hip dislocation. No evidence of hardware loosening, regarding the portions of the hardware included on this exam. The osseous structures are diffusely demineralized. Pubic symphysis and SI joints are of normal width. There is no evidence of acute fracture. No lytic or blastic lesions. The bowel gas pattern is normal. The distal abdominal aorta is tortuous in bulging. Calcific plaque is noted within the arterial systems. Injection granulomas are present at both hips. Impression: Postsurgical changes and demineralization. No acute abnormality. PROCEDURE INTERPRETED AT [facility] DEPARTMENT OF RADIOLOGY Final Report Signed by: Dr. Ameena Hoffmann
[2016-10-05] MEDS ORDERED: MONTELUKAST 10 MG TABLET PO SCH (21:00)
[2016-10-05] MEDS ORDERED: traZODone 50 MG TABLET PO SCH (21:00)
[2016-10-05] MEDS ORDERED: TEMAZEPAM 15 MG CAPSULE PO SCH (21:00)
[2016-10-05 22:22] LABS: Troponin I Only < 0.015 NG/ML (0.00-0.045)
[2016-10-06 04:45] LABS: Basophils % 0.7 % (0.0-0.8); Eosinophils # 0.2 10*3/uL (0.0-0.87); Eosinophils % 4.1 % (0.00-10.9); Hematocrit 32.8 VOL% (35.7-47.0); Hemoglobin 10.6 GM/DL (12.0-16.0); Immature Granulocytes % 0.4 %; Immature Granulocytes Absolute 0.02 #; Lymphocytes # 2.4 10*3/uL (1.4-4.0); Lymphocytes % 43.5 % (21.3-54.2); Mean Corpuscular HGB Conc 32.3 GM/DL (32-36); Mean Corpuscular Hemoglobin 34 PG (27-34); Mean Corpuscular Volume 105.5 FL (87-102); Mean Platelet Volume 10.6 FL (9.6-12.0); Monocytes # 0.4 10*3/uL (0.11-0.8); Neutrophils # 2.3 10*3/uL (1.4-7.4); Neutrophils % 43.3 % (38.7-73.9); Platelet Count 214 10*3/uL (130-400); Red Blood Count 3.11 10*6/uL (3.8-5.5); Red Cell Distribution Width 13.2 % (9.3-17.3); White Blood Count 5.4 10*3/uL (4.5-13.71)
[2016-10-06 05:25] LABS: Troponin I Only < 0.015 NG/ML (0.00-0.045)
[2016-10-06] MEDS: ENOXAPARIN 30 MG/0.3 ML SYRINGE SUBCUT SCH (05:27)
[2016-10-06] MEDS: NITROGLYCERIN 2% OINT 1 INCH/GM PACK TOP SCH ×3 (05:27→18:05)
[2016-10-06 05:28] LABS: Calcium 8.1 MG/DL (8.5-10.1); Osmolality,Calculated 294.4 MOS/KG (273-304); Potassium 3.9 MMOL/L (3.5-5.1)
[2016-10-06] MEDS: HYDROmorphone 2 MG/1 ML VIAL IV PRN ×2 (05:28→09:32)
[2016-10-06] MEDS: LEVOTHYROXINE 100 MCG TABLET PO SCH (06:11)
--- NOTE | 2016-10-06 07:49 | EKG Report ---
Stationary ECG Study [facility] Test Date: 10/06/2016 7:49:23 AM Pat Name: ОЛЕГ DILLON Department: Room: 287 Gender: F Ceiling Installer: : 1945 Requested by: Nano Henson Order Number: [id number] Reading MD: NANO HENSON Intervals [place] Rate: 70 P: 74 AK: 209 QRS: 43 QRSD: 153 T: 204 QT: 475 QTc: 496 Interpretive Statements SINUS RHYTHM LEFT BUNDLE BRANCH BLOCK Electronically Signed On 10-06-16 12:22:20 BORDER MACHINE OPERATOR by NANO HENSON [email or web address]
[2016-10-06] MEDS: CLORAZEPATE 7.5 MG TABLET PO SCH ×2 (09:30→16:20)
[2016-10-06] MEDS: MELOXICAM 7.5 MG TABLET PO SCH (09:30)
[2016-10-06] MEDS: GABAPENTIN 100 MG CAPSULE PO SCH ×2 (09:31→16:20)
[2016-10-06] MEDS: DOCUSATE SODIUM 100 MG CAPSULE PO SCH (09:31)
[2016-10-06] MEDS: FENOFIBRATE 48 MG TABLET PO SCH (09:31)
[2016-10-06] MEDS: ASPIRIN EC 325 MG TABLET PO SCH (09:31)
[2016-10-06] MEDS: ESCITALOPRAM 10 MG TABLET PO SCH (09:31)
[2016-10-06] MEDS: PANTOPRAZOLE 40 MG TABLET PO SCH (09:31)
[2016-10-06] MEDS: MOMETASONE 50 MCG NASAL SPRAY 17 GM BOTTLE BOTH NARES SCH (09:35)
--- NOTE | 2016-10-06 10:44 | Cardiology Progress Note ---
Assessment and Plan (1) Chest pain Status: Acute Assessment and plan: Some features typical for angina, other symptoms reported atypical for angina. She reports a heaviness in her left chest which radiates to her midsternal chest. She also has tenderness to palpation in this same region. She describes having jaw pain which radiates down her left neck and left arm that she says is similar to previous pain she has had when she has been hospitalized for her heart and has required stenting or CABG. Troponins are negative thus far. EKG shows sinus rhythm with chronic LBBB and inverted T waves. To me, with her having acute renal failure, the risk of the giving her contrast is greater than the benefit in this situation. Her troponins are negative. She has chest pain that is reproducible. She does have known CAD. Plan/ recommendation : Not take to the [place] at this point. The risk of greater than benefit, given her acute renal failure. She had a heart cath done in which showed all grafts were open there is not an explanation for her pain which is similar to now. Her BNP is 92, so I will give her a low volume infusion of saline see if it helps her renal function. BMP every morning 3. Elevate the head of her bed. GE reflux precautions. She is on a proton pump inhibitor. Anxiety is much of a problem. And trazodone for over milligrams nightly. Will give a trial of gabapentin 100 mg p.o. 3 times daily, to treat for muscle skeletal pain.. Will consult pain medicine. She states she cannot take tramadol. Do not use NSAIDs because of her acute renal failure. Her left bundle-branch block is chronic. Serial cardiac isoenzymes. Serial EKGs. I will follow along with. Thank you for allowing me to participate in this patient's care 10/06/16-her overall pain is better. I appreciate Dr. Monae's assessment. She has areas of chronic pain but anxiety is contributing. She said she slept better last night with the trazodone. It will maybe help her anxiety and her pain. If she has fibromyalgia, good night sleep would help her. Her cardiac isoenzymes are negative. Her CK is elevated but MB negative. Maybe it relates to chronic muscle skeletal pain, possibly due to the statin if she is on it. Her creatinine, with hydration is come to 1.6. Her x-rays revealed some osteopenia and an AAA. This --AAA---can be worked up by Dr. Feng later if needed. At this point, with a creatinine elevated we would not want to exposure to contrast, which may take a CT angiogram to evaluate this, again, if needed. He may already have evaluated. Her echo revealed good LV function but pulmonary hypertension, RV systolic pressure 80 mmHg.. She can have this evaluated outpatient, possibly from a aircraft seat upholsterer or referred to [facility]. It may relate to obesity and/or sleep apnea or LV diastolic dysfunction. Plan/ recommendation : Give normal saline at 75 cc an hour for 1 l. We will recheck the creatinine in the a.m. Pulmonary hypertension evaluation and workup can be done outpatient by a aircraft seat upholsterer or at [facility]'s pulmonary hypertension clinic. It may be contributing to her shortness of breath. The same can be said for the AAA--see above. Dr. Feng could evaluate that, if needed, needed when he sees her back and remain her renal function is baseline. Currently we are holding her YADY inhibitor and her diuretic. From my standpoint, she may go home when you are ready to discharge her. Current Visit: Yes (2) Sciatica Status: Acute Current Visit: Yes (3) Thoracic back pain Status: Acute Current Visit: Yes (4) Dyslipidemia Status: Chronic Assessment and plan: Triglycerides 391, cholesterol 186, LDL 100, HDL 34. Currently on Trilipix 45mg PO daily. Current Visit: Yes (5) Hypertension Status: Chronic Assessment and plan: Patient's blood pressure has been elevated since admission. She has been in a good deal of back and sciatic pain. Once her pain is better controlled, she may require adjustment of blood pressure medications. Current Visit: Yes (6) History of coronary artery bypass graft x 3 Problem details: Patient has history of coronary artery bypass grafting in 1998 with RICKS to LAD, saphenous vein graft to first diagonal, saphenous vein graft to RCA. Patient had repeat coronary artery bypass grafting in 2009 with saphenous vein graft to diagonal branch. Status: Chronic Current Visit: Yes (7) History of congestive heart failure Status: Chronic Assessment and plan: Patient is not currently in heart failure. BNP on admission was 92. Last echo on record from 05/16/15 shows EF of 50%, mild MR, mild AI. Current Visit: Yes (8) History of coronary artery disease Problem details: Patient has history of coronary artery bypass grafting in 1998 with RICKS to LAD, saphenous vein graft to first diagonal, saphenous vein graft to RCA. Patient had repeat coronary artery bypass grafting in 2009 with saphenous vein graft to diagonal branch. Status: Chronic Current Visit: No (9) Chest wall pain Status: Acute Current Visit: Yes (10) Acute renal failure Status: Acute Current Visit: Yes (11) Left bundle branch block Status: Acute Current Visit: Yes (12) History of colitis Status: Acute Current Visit: Yes (13) Dyspnea on exertion Status: Acute Current Visit: Yes (14) Overweight Status: Acute Current Visit: Yes (15) Chest pain Problem details: The patient has always been difficult to evaluate. She's had pain at rest. The only option is really cardiac catheterization. Status: Acute Current Visit: No (16) Hyperlipidemia LDL goal <100 Status: Acute Current Visit: No (17) Reflux esophagitis Status: Acute Current Visit: No (18) Chronic pain associated with significant psychosocial dysfunction Problem details: Complaining of bilateral hip pain. She thinks her right hip may be dislocated again. Status: Acute Current Visit: No (19) Osteoarthritis (arthritis due to wear and tear of joints) Status: Acute Current Visit: No Qualifiers: Osteoarthritis location: multiple joints Osteoarthritis type: primary Qualified Code(s): M15.0 - Primary generalized (osteo)arthritis (20) COPD (chronic obstructive pulmonary disease) Status: Chronic Current Visit: No (21) Colitis Status: Acute Current Visit: No (22) Abdominal aortic aneurysm Status: Acute Current Visit: Yes (23) PHT (pulmonary hypertension) Status: Acute Current Visit: Yes Cardiology - PN: Subj Interval history: Much of her left chest pain is better. Less soreness. Her pain seems to be better with some medicines were given, including the Neurontin. Exam (Progress Note) - Constitutional Vitals: Period Temp Pulse Resp BP Sys/Jaramillo Pulse Ox Last 24 Hr 97.1 F-98.6 F 69-80 16-20 101-160/42-94 90-95 Exam: HEENT: Pupils equal, reactive to light and accommodation Neck: NoJVD or bruit Lungs clear to auscultation Heart: Regular rhythm rate with normal S1 and S2. Apical S4 Abdomen: No hepatosplenomegaly Spine/extremities: No clubbing, cyanosis, or edema Neuro: Nonfocal Psych: No depression or anxiety Less soreness compared to yesterday Result/EKG - Labs CBC & BMP: 10/06/16 04:20 10/06/16 04:20 Labs: Laboratory Results - last 24 hr 10/05/16 10/05/16 10/05/16 11:01 15:40 21:26 WBC RBC Hgb Hct MCV MCH MCHC RDW Plt Count MPV Neut % (Auto) Lymph % (Auto) [place] % (Auto) Eos % (Auto) Baso % (Auto) Neut # (Auto) Lymph # (Auto) [place] # (Auto) Eos # (Auto) Baso # (Auto) Immature Gran % Nucleated RBC % Immature Gran # Nucleated RBCs # Sodium Potassium Chloride Carbon Dioxide Anion Gap BUN Creatinine GFR Calculation BUN/Creatinine Ratio Glucose Calculated Osmolality Calcium Total Creatine Kinase 815 H D 997 H D CK-MB (CK-2) 4.8 H 4.3 H Troponin I < 0.015 < 0.015 < 0.015 10/06/16 10/06/16 10/06/16 04:20 04:20 04:20 WBC 5.4 D RBC 3.11 L Hgb 10.6 L D Hct 32.8 L MCV 105.5 H MCH 34 MCHC 32.3 RDW 13.2 Plt Count 214 D MPV 10.6 Neut % (Auto) 43.3 Lymph % (Auto) 43.5 [place] % (Auto) 8.0 Eos % (Auto) 4.1 Baso % (Auto) 0.7 Neut # (Auto) 2.3 Lymph # (Auto) 2.4 [place] # (Auto) 0.4 Eos # (Auto) 0.2 Baso # (Auto) 0.0 Immature Gran % 0.4 Nucleated RBC % 0.0 Immature Gran # 0.02 Nucleated RBCs # 0.00 Sodium 140 Potassium 3.9 Chloride 101 Carbon Dioxide 28 Anion Gap 14.9 BUN 44 H Creatinine 1.60 H GFR Calculation 33 BUN/Creatinine Ratio 27.00 H Glucose 189 H Calculated Osmolality 294.4 Calcium 8.1 L Total Creatine Kinase 686 H D CK-MB (CK-2) 2.9 Troponin I < 0.015 Quality Measures - VTE Deep Vein Thrombosis/Pulmonary Embolism Present on Admission: No
[2016-10-06] MEDS ORDERED: SODIUM CHLORIDE 0.9% 1,000 ML IV SCH (11:00)
[2016-10-06] MEDS ORDERED: HYDROmorphone 2 MG/1 ML VIAL IV PRN (13:01)
--- NOTE | 2016-10-06 13:05 | Pain Management Progress Note ---
Assessment and Plan (1) Lumbar spine pain Problem details: Long-standing low back pain Status: Acute Assessment and plan: 10/06/2016. Overall the patient is doing better. Trazodone help her sleep last night. I reviewed her x-rays according pelvis hips and low back and no acute fractures are seen. Hardware in place for hip replacements without loosening. X-rays lumbar spine demonstrate multilevel degenerative changes but no fractures. She does have a mild grade 1 spondylolisthesis at L5-S1. There is no surgical pathology. I do think that she will do well with conservative treatment. I strongly encouraged her to walk and work on her core strengthening. After discharge she'll need long-term therapy to strengthen her core which will help her back pain. In the meantime she is walking the halls. We'll add low-dose baclofen for any muscle spasm that she has. Also I reduce the frequency of the IV Dilaudid because I think she can get off of this soon. In addition, I agree with discharge planning soon, in regards to her low back and hip pain I do think that is reasonable to manage this further as an outpatient. y 10/05/2016. The patient has long-standing low back pain for over 10 years. She is on [place] chronically for this. The pain is much worse recently, and we' ll get x-rays rule out fracture. Her anxiety is playing a role in the pain process. y Current Visit: Yes (2) Hip pain, chronic Problem details: Bilateral hip pain right worse than left. She is status post bilateral hip replacement Status: Acute Assessment and plan: 10/06/2016. The patient's hip pain is improved. No loosening of the prostheses are seen on x-ray. 10/05/2016. The patient has long-standing bilateral hip pain. She had bilateral hip replacement years ago. She has had persistent pain over the years. The pain is worse with standing. Current Visit: Yes Qualifiers: Laterality: right Qualified Code(s): M25.551 - Pain in right hip; G89.29 - Other chronic pain (3) Lumbar radiculopathy, right Problem details: Long-standing motor sensory deficit right lower extremity pain Status: Acute Assessment and plan: 10/06/2016. Stable 10/05/2016. The patient has a lumbar radiculopathy involving the right lower extremity. She has motor sensory deficit in the right lower extremity consistent with a low lumbar radiculopathy. This is long-standing and not acute but the severity of it has increased over the past week. Goal is to treat her conservatively and work on her mechanical low back pain. If the radicular pain worsens we may need a MRI that point. Her anxiety level is playing a role in the pain process. Current Visit: Yes (4) Chronic anxiety Problem details: Long-standing anxiety Status: Acute Assessment and plan: 10/06/2016. She seems less anxious today, possibly related to trazodone. 10/05/2016. The patient reports being anxious and somewhat down. She lost her son-in-law who is very close to her late last year. Her has progressive dementia. She is losing the ability to remain active and this is adding to her anxiety and depressive symptomatology. Her depressive symptomatology my opinion is playing assessment a role in her pain process. I do think that some of her anxieties driven by progressive loss of independence. Current Visit: Yes Pain - Subjective Interval history: Improvement of back and hip pain Exam - Constitutional Vitals: Period Temp Pulse Resp BP Sys/Jaramillo Pulse Ox Last 24 Hr 97.1 F-98.6 F 69-80 16-20 101-160/42-71 90-95 General appearance: no acute distress (sitting up comfortably), over weight - Eye Eye exam: Present: EOMI - Back Exam Back exam: Present: vertebral tenderness - Neurological Exam Neurological exam: Present: alert, oriented X3, motor sensory deficit Results - Labs CBC & BMP: 10/06/16 04:20 10/06/16 04:20 Quality Measures - VTE Deep Vein Thrombosis/Pulmonary Embolism Present on Admission: No
[2016-10-06 15:41] VITALS: BP 127/62
--- NOTE | 2016-10-06 17:13 | Discharge Summary ---
Hospital Course - Hospital Course Hospital Course: Mrs. Garcia was admitted for evaluation of atypical chest pain. Troponins were serially negative. Echocardiogram revealed diastolic dysfunction with normal ejection fraction. She was evaluated by cardiology with no further recommendations. She was also seen in consultation by pain management who adjusted her pain medications. By discharge she had met maximum benefit of hospitalization. - Time spent with patient Time with patient DS: Greater than 30 minutes Diagnosis - Discharge Diagnosis (1) Chest pain Status: Acute (2) History of congestive heart failure Status: Chronic (3) History of coronary artery bypass graft x 3 Status: Chronic (4) Hypothyroidism Status: Acute (5) Hypertension Status: Chronic Discharge Plan - Discharge Data Disposition: Disch To Home/Self Care Condition at Discharge: Stable Discharge Diet: advance to your usual diet - Discharge Medications New Aspirin EC Tab 325 mg PO DAILY #30 tablet Baclofen Tab [Lioresal] 5 mg PO BID #60 tablet Gabapentin Cap/Tab [Neurontin Cap/Tab] 100 mg PO TID #180 capsule Continue Ramipril 2.5 mg PO BID Levothyroxine Tab [Synthroid Tab] 100 mcg PO DAILY@0700 Clorazepate [Tranxene] 7.5 mg PO TID Furosemide Tab [Lasix Tab] 40 mg PO BID DIURETIC Meloxicam [Mobic] 7.5 mg PO DAILY Fenofibric Acid (Choline) [Trilipix] 45 mg PO DAILY Escitalopram [Lexapro] 20 mg PO DAILY Temazepam [Restoril] 15 mg PO BEDTIME Montelukast Tab [Singulair Tab] 10 mg PO BEDTIME Mometasone 50 Mcg Nasal [place] [Nasonex Nasal [place]] 2 sprays ONE NARE DAILY Discontinued Aspirin [Ecotrin] 81 mg PO DAILY - Follow Up or Referral - Forms/Instructions Exam - Constitutional Vitals: Period Temp Pulse Resp BP Sys/Jaramillo Pulse Ox Last 24 Hr 97.4 F-98.6 F 69-80 18-20 101-160/42-71 90-95 General appearance: normal weight, no acute distress - Head Head exam: Present: normal inspection, normocephalic, atraumatic - Eye Eye exam: Present: EOMI Pupils: Present: MAURA - ENT ENT exam: Present: normal exam - Neck Neck exam: Present: normal inspection - Respiratory Respiratory exam: Present: clear to auscultation bilaterally - Cardiovascular Cardiovascular exam: Present: regular rate and rhythm - GI/Abdominal GI/Abdominal exam: Present: normal bowel sounds - Extremities Exam Extremities exam: Present: normal inspection Discharge Results Procedures and tests throughout hospitalization: Pending Orders 10/07/16 04:00 BMP [Basic Metabolic Panel] IN AM 10/08/16 04:00 BMP [Basic Metabolic Panel] IN AM Labs on day of discharge: Labs from last 24 hours 10/06/16 10/06/16 10/06/16 04:20 04:20 04:20 WBC 5.4 D RBC 3.11 L Hgb 10.6 L D Hct 32.8 L MCV 105.5 H MCH 34 MCHC 32.3 RDW 13.2 Plt Count 214 D MPV 10.6 Neut % (Auto) 43.3 Lymph % (Auto) 43.5 Armstrong % (Auto) 8.0 Eos % (Auto) 4.1 Baso % (Auto) 0.7 Neut # (Auto) 2.3 Lymph # (Auto) 2.4 Armstrong # (Auto) 0.4 Eos # (Auto) 0.2 Baso # (Auto) 0.0 Immature Gran % 0.4 Nucleated RBC % 0.0 Immature Gran # 0.02 Nucleated RBCs # 0.00 Sodium 140 Potassium 3.9 Chloride 101 Carbon Dioxide 28 Anion Gap 14.9 BUN 44 H Creatinine 1.60 H GFR Calculation 33 BUN/Creatinine Ratio 27.00 H Glucose 189 H Calculated Osmolality 294.4 Calcium 8.1 L Total Creatine Kinase 686 H D CK-MB (CK-2) 2.9 Troponin I < 0.015 10/05/16 21:26 WBC RBC Hgb Hct MCV MCH MCHC RDW Plt Count MPV Neut % (Auto) Lymph % (Auto) Armstrong % (Auto) Eos % (Auto) Baso % (Auto) Neut # (Auto) Lymph # (Auto) Armstrong # (Auto) Eos # (Auto) Baso # (Auto) Immature Gran % Nucleated RBC % Immature Gran # Nucleated RBCs # Sodium Potassium Chloride Carbon Dioxide Anion Gap BUN Creatinine GFR Calculation BUN/Creatinine Ratio Glucose Calculated Osmolality Calcium Total Creatine Kinase 997 H D CK-MB (CK-2) 4.3 H Troponin I < 0.015 DS: Provider Date of admission: 10/05/16 02:57 Primary care physician: . No PCP Attending physician on admission: Taylor Cochran MD Consults: 10/05/16 04:50 Consult to Physician [CONS] Routine Comment: dr bradshaw's patient Consulting Provider: Cardiology - [facility] Consult to Specialist Group: Cardiology When should Consulting Provider be notified: In am Person Notified: DAVID Date Notified: 10/05/16 Time Notified: 08:45 10/05/16 15:16 Consult to Physician [CONS] Routine Comment: Consulting Provider: Didier Monae Consulting Provider Notified: No When should Consulting Provider be notified: Now Consult to Specialist Group: Pain Management Consult Notification Comment: Patient was much pain all over. It is her main reason for being here. She has CAD but has not had an AR. Please evaluate and treat her generalized pain and anxiety. Thank you Discharging clinician: Taylor Cochran MD Expected date of discharge: 10/06/16
[2016-10-06] MEDS ORDERED: BACLOFEN 10 MG TABLET PO SCH (18:00)
== END 2016-10-06 18:49 | disposition home or self-care (01) ==
LOC: EDBD → EDUNIT# → N.EDINP 00:58 → N.ED 00:58 → N.TELEN 04:19
PROVIDERS: ADMIT Internal Medicine; ATTEND Internal Medicine

== ENCOUNTER 2017-11-20 05:11 | Inpatient (IN) ==
[2017-11-20] MEDS ORDERED: ASPIRIN 325 MG TABLET PO STA (05:41)
[2017-11-20] MEDS ORDERED: ASPIRIN 325 MG TABLET ONE (05:58)
[2017-11-20 06:01] LABS: Basophils % 0.7 % (0.0-0.8); Eosinophils # 0.1 10*3/uL (0.0-0.87); Immature Granulocytes % 0.7 %; Immature Granulocytes Absolute 0.04 #; Lymphocytes # 2.3 10*3/uL (1.4-4.0); Lymphocytes % 41.2 % (21.3-54.2); Mean Corpuscular HGB Conc 33.3 GM/DL (32-36); Mean Corpuscular Hemoglobin 35 PG (27-34); Mean Platelet Volume 10.3 FL (9.6-12.0); Monocytes # 0.5 10*3/uL (0.11-0.8); Monocytes % 9.3 % (1.7-12.7); Neutrophils # 2.6 10*3/uL (1.4-7.4); Neutrophils % 46.1 % (38.7-73.9); Platelet Count 225 T/CUMM (130-400); Red Blood Count 3.75 MC/CUMM (3.8-5.5); Red Cell Distribution Width 14.2 % (9.3-17.3); White Blood Count 5.6 T/CUMM (4-12)
[2017-11-20 06:29] LABS: Albumin 4.1 G/DL (3.4-5.0); Bilirubin,Total 0.5 MG/DL (0.2-1.0); Calcium 8.7 MG/DL (8.5-10.1); Osmolality,Calculated 282.4 MOS/KG (273-304); Potassium 3.4 MMOL/L (3.5-5.1); Total Protein 7.3 G/DL (6.4-8.3)
[2017-11-20] MEDS ORDERED: NITROGLYCERIN 2% OINT 1 INCH/GM PACK TOP STA (06:31)
[2017-11-20] MEDS ORDERED: NITROGLYCERIN 2% OINT 1 INCH/GM PACK TOP ONE ×2 (06:36→13:29)
[2017-11-20] MEDS ORDERED: ONDANSETRON 4 MG/2 ML VIAL IV PRN (11:18)
[2017-11-20] MEDS ORDERED: MAGNESIUM SULF RIDER 2 GM in PREMIX 1 EACH IV PRN (11:18)
[2017-11-20] MEDS ORDERED: BISACODYL 5 MG TABLET PO PRN (11:18)
[2017-11-20] MEDS ORDERED: ZALEPLON 5 MG CAPSULE PO PRN (11:18)
[2017-11-20] MEDS ORDERED: PANTOPRAZOLE 40 MG TABLET PO ONE (13:29)
[2017-11-20] MEDS ORDERED: METOCLOPRAMIDE 10 MG TABLET ONE (13:29)
[2017-11-20] MEDS: PANTOPRAZOLE 40 MG TABLET PO SCH (13:54)
[2017-11-20] MEDS: NITROGLYCERIN 2% OINT 1 INCH/GM PACK TOP SCH ×3 (13:54→23:17)
[2017-11-20] MEDS: METOCLOPRAMIDE 10 MG TABLET PO SCH ×3 (13:54→20:45)
[2017-11-20] MEDS ORDERED: ENOXAPARIN 80 MG/0.8 ML SYRINGE SUBCUT ONE (13:55)
[2017-11-20] MEDS: ENOXAPARIN 80 MG/0.8 ML SYRINGE SUBCUT SCH (14:01)
[2017-11-20 14:12] LABS: PT Patient Result 10.6 SECS; Partial Thromboplastin Time 26.6 SECS (0-40)
[2017-11-20] MEDS: CLORAZEPATE 7.5 MG TABLET PO SCH ×2 (15:07→20:44)
[2017-11-20] MEDS: FUROSEMIDE 40 MG TABLET PO SCH (15:08)
[2017-11-20] MEDS: MORPHINE 2 MG/1 ML SYRINGE IV PRN ×2 (15:08→19:38)
[2017-11-20] MEDS: GABAPENTIN 100 MG CAPSULE PO SCH ×2 (15:08→20:44)
[2017-11-20] MEDS: POTASSIUM CHLORIDE 20 MEQ TABLET PO PRN ×2 (19:37→20:44)
[2017-11-20] MEDS: FAMOTIDINE 20 MG TABLET PO SCH (20:44)
[2017-11-20] MEDS: BACLOFEN 10 MG TABLET PO SCH (20:45)
[2017-11-20] MEDS ORDERED: MONTELUKAST 10 MG TABLET PO SCH (21:00)
[2017-11-21] MEDS: ENOXAPARIN 80 MG/0.8 ML SYRINGE SUBCUT SCH ×2 (00:31→14:41)
[2017-11-21] MEDS: POTASSIUM CHLORIDE 20 MEQ TABLET PO PRN (01:34)
[2017-11-21 05:00] LABS: Basophils % 0.7 % (0.0-0.8); Eosinophils # 0.1 10*3/uL (0.0-0.87); Eosinophils % 2.3 % (0.00-10.9); Hematocrit 35.3 VOL% (35.7-47.0); Hemoglobin 12.2 GM/DL (12.0-16.0); Immature Granulocytes % 0.7 %; Immature Granulocytes Absolute 0.04 #; Lymphocytes # 2.6 10*3/uL (1.4-4.0); Mean Corpuscular HGB Conc 34.6 GM/DL (32-36); Mean Corpuscular Hemoglobin 36 PG (27-34); Mean Corpuscular Volume 102.6 FL (87-102); Mean Platelet Volume 10.9 FL (9.6-12.0); Monocytes # 0.6 10*3/uL (0.11-0.8); Monocytes % 9.3 % (1.7-12.7); Neutrophils # 2.7 10*3/uL (1.4-7.4); Platelet Count 207 T/CUMM (130-400); Red Blood Count 3.44 MC/CUMM (3.8-5.5)
[2017-11-21 05:26] LABS: Calcium 8.4 MG/DL (8.5-10.1); Osmolality,Calculated 278.5 MOS/KG (273-304); Potassium 4.1 MMOL/L (3.5-5.1); Risk Ratio 10.61; VLDL CHOLESTEROL 115.2 MG/DL
[2017-11-21] MEDS: NITROGLYCERIN 2% OINT 1 INCH/GM PACK TOP SCH ×2 (06:19→14:41)
[2017-11-21] MEDS ORDERED: FENOFIBRIC ACID 45 MG PO SCH (09:00)
[2017-11-21] MEDS ORDERED: ASPIRIN EC 325 MG TABLET PO SCH (09:00)
[2017-11-21] MEDS ORDERED: LEVOTHYROXINE 112 MCG TABLET PO SCH (09:00)
[2017-11-21] MEDS ORDERED: ESCITALOPRAM 10 MG TABLET PO SCH (09:00)
[2017-11-21] MEDS ORDERED: METOPROLOL SUCCINATE XL 50 MG TABLET PO SCH (09:00)
[2017-11-21] MEDS: BACLOFEN 10 MG TABLET PO SCH (09:23)
[2017-11-21] MEDS: FUROSEMIDE 40 MG TABLET PO SCH ×2 (09:23→17:33)
[2017-11-21] MEDS: METOCLOPRAMIDE 10 MG TABLET PO SCH ×3 (09:23→17:33)
[2017-11-21] MEDS: PANTOPRAZOLE 40 MG TABLET PO SCH (09:23)
[2017-11-21] MEDS: CLORAZEPATE 7.5 MG TABLET PO SCH ×2 (09:23→15:27)
[2017-11-21] MEDS: FAMOTIDINE 20 MG TABLET PO SCH (09:23)
[2017-11-21] MEDS: GABAPENTIN 100 MG CAPSULE PO SCH ×2 (09:24→15:27)
[2017-11-21 12:31] VITALS: BP 161/76
[2017-11-21 18:20] LABS: Apearance,Urine CLEAR (Clear); Bilirubin,Urine Negative (Negative); Blood, Urine Negative (Negative); Glucose,Urine (UA) Negative (Negative); Ketones,Urine Negative (Negative); Nitrite,Urine Negative (Negative); Protein,Urine Negative; Urine Color Yellow (Yellow); Urine Urobilinogen < 2.0 EU/DL (0.2-1.0); WBC,Urine 2 /HPF (0-6)
== END 2017-11-21 19:07 | disposition home or self-care (01) | DRG 313 ==
LOC: N.ED 05:11 → N.EDINP 11:18 → N.TELES 14:20
PROVIDERS: ADMIT Internal Medicine Cardiovascular Disease; ATTEND Internal Medicine Cardiovascular Disease

== ENCOUNTER 2020-12-24 11:17 | Observation (INO) ==
[2020-12-24] MEDS ORDERED: NITROGLYCERIN 2% OINT 1 INCH/GM PACK TOP STA (11:45)
[2020-12-24] MEDS ORDERED: MORPHINE 4 MG/1 ML VIAL IV STA (11:48)
[2020-12-24] MEDS ORDERED: ONDANSETRON 4 MG/2 ML VIAL IV STA (11:48)
[2020-12-24 11:57] LABS: Basophils % 0.5 % (0.0-0.8); Eosinophils # 0.3 10*3/uL (0.0-0.87); Eosinophils % 3.5 % (0.00-10.9); Hematocrit 40.1 VOL% (35.7-47.0); Hemoglobin 12.9 GM/DL (12.0-16.0); Immature Granulocytes % 0.3 %; Immature Granulocytes Absolute 0.02 #; Lymphocytes # 2.2 10*3/uL (1.4-4.0); Mean Corpuscular HGB Conc 32.2 GM/DL (32-36); Mean Corpuscular Volume 98.3 FL (87-102); Mean Platelet Volume 11.1 FL (9.6-12.0); Monocytes % 7.2 % (1.7-12.7); Neutrophils % 58.5 % (38.7-73.9); Platelet Count 224 T/CUMM (130-400); Red Blood Count 4.08 MC/CUMM (3.8-5.5); White Blood Count 7.3 T/CUMM (4-12)
[2020-12-24 12:24] LABS: Albumin 4.4 G/DL (3.4-5.0); Bilirubin,Total 0.6 MG/DL (0.2-1.0); Calcium 9.3 MG/DL (8.5-10.1); Osmolality,Calculated 280.4 MOS/KG (273-304); Potassium 3.3 MMOL/L (3.5-5.1); Total Protein 7.7 G/DL (6.4-8.2)
[2020-12-24] MEDS ORDERED: POTASSIUM CHLORIDE 20 MEQ TABLET PO STA (13:48)
[2020-12-24] MEDS ORDERED: MORPHINE ER 15 MG TABLET PO PRN (13:50)
[2020-12-24] MEDS ORDERED: LACTULOSE 20 GM/30 ML UDCUP PO PRN (15:14)
[2020-12-24] MEDS ORDERED: GLUCAGON 1 MG VIAL IM PRN (15:14)
[2020-12-24] MEDS ORDERED: DEXTROSE 50% 25 GM/50 ML VIAL IV PRN (15:14)
[2020-12-24] MEDS ORDERED: ONDANSETRON 4 MG/2 ML VIAL IV PRN (15:14)
[2020-12-24] MEDS ORDERED: ENOXAPARIN 40 MG/0.4 ML SYRINGE SUBCUT SCH (16:00)
[2020-12-24] MEDS ORDERED: methylPREDNISolone 4 MG TABLET PO SCH (16:00)
[2020-12-24] MEDS: SODIUM CHLORIDE 0.9% 1,000 ML IV SCH (18:22)
[2020-12-24] MEDS: BACLOFEN 10 MG TABLET PO SCH ×2 (18:22→21:17)
[2020-12-24] MEDS ORDERED: ASPIRIN EC 325 MG TABLET PO SCH (21:00)
[2020-12-24] MEDS ORDERED: MONTELUKAST 10 MG TABLET PO SCH (21:00)
[2020-12-24] MEDS ORDERED: traZODone 50 MG TABLET PO SCH ×2 (21:00)
[2020-12-24] MEDS: GABAPENTIN 300 MG CAPSULE PO SCH (21:12)
[2020-12-24] MEDS: methylPREDNISolone 4 MG TABLET PO SCH (21:12)
[2020-12-24] MEDS: TRIAMCINOLONE 0.025% CREAM 15 GM TUBE TOP SCH (21:13)
[2020-12-25 00:35] LABS: Bacteria,Urine Moderate /HPF (Few); Bilirubin,Urine Negative (Negative); Blood, Urine Small mg/dL (Negative); Glucose,Urine (UA) Negative (Negative); Hyaline Casts,Urine 1 /LPF (0-3); Ketones,Urine Negative (Negative); Mucus,Urine Occasional /LPF (Occasional); Nitrite,Urine Positive (Negative); Protein,Urine Negative; RBC,Urine 2 /HPF (0-4); Renal Epithelial Cells,Urine Occasional /HPF (<1); Squamous Epithelial Cell,Urine Occasional /HPF (0-10); Urine Appearance Slightly Hazy (Clear); Urine Color Yellow (Yellow); Urine Specific Gravity 1.015 (1.001-1.035); Urine Urobilinogen < 2.0 EU/DL (0.2-1.0); WBC,Urine 225 /HPF (0-6)
[2020-12-25 05:13] LABS: Basophils % 0.4 % (0.0-0.8); Eosinophils % 0.2 % (0.00-10.9); Hematocrit 35.6 VOL% (35.7-47.0); Hemoglobin 11.6 GM/DL (12.0-16.0); Immature Granulocytes % 0.4 %; Immature Granulocytes Absolute 0.02 #; Lymphocytes # 1.1 10*3/uL (1.4-4.0); Lymphocytes % 20.4 % (21.3-54.2); Mean Corpuscular HGB Conc 32.6 GM/DL (32-36); Mean Corpuscular Volume 97.5 FL (87-102); Mean Platelet Volume 11.4 FL (9.6-12.0); Neutrophils % 77.6 % (38.7-73.9); Platelet Count 201 T/CUMM (130-400); Red Blood Count 3.65 MC/CUMM (3.8-5.5); Red Cell Distribution Width 12.8 % (9.3-17.3); White Blood Count 5.2 T/CUMM (4-12)
[2020-12-25 05:49] LABS: Osmolality,Calculated 283.4 MOS/KG (273-304)
[2020-12-25] MEDS ORDERED: LEVOTHYROXINE 112 MCG TABLET PO SCH (06:30)
[2020-12-25 07:52] VITALS: BP 109/83
[2020-12-25] MEDS: methylPREDNISolone 4 MG TABLET PO SCH (08:06)
[2020-12-25] MEDS: GABAPENTIN 300 MG CAPSULE PO SCH (08:06)
[2020-12-25] MEDS: BACLOFEN 10 MG TABLET PO SCH (08:07)
[2020-12-25] MEDS: SODIUM CHLORIDE 0.9% 1,000 ML IV SCH (08:07)
[2020-12-25] MEDS: TRIAMCINOLONE 0.025% CREAM 15 GM TUBE TOP SCH (08:07)
[2020-12-25] MEDS ORDERED: ESCITALOPRAM 10 MG TABLET PO SCH (09:00)
[2020-12-25] MEDS ORDERED: amLODIPine 5 MG TABLET PO SCH (09:00)
[2020-12-25] MEDS ORDERED: PANTOPRAZOLE 40 MG TABLET PO SCH (09:00)
[2020-12-25] MEDS ORDERED: METOPROLOL SUCCINATE XL 50 MG TABLET PO SCH (09:00)
== END 2020-12-25 11:35 | disposition home or self-care (01) ==
LOC: N.ED 11:17 → N.EDINP 11:17 → N.3E 17:15
PROVIDERS: ADMIT Internal Medicine; ATTEND Internal Medicine